=== PATIENT | female | born 1955 | race Caucasian/White ===

== ENCOUNTER 2017-09-01 09:17 | Emergency (ER) | payer MEDICAID ==
[~2017-09-01] VITALS: Ht 165.1 cm; Wt 45.8 kg
[2017-09-01 09:19] VITALS: BP 156/96
[2017-09-01] MEDS ORDERED: PROPARACAINE OPHTH 0.5%, 15ML ONE (10:01)
[2017-09-01] MEDS ORDERED: PROPARACAINE OPHTH 0.5%, 15ML EACHEYE ONE (11:30)
[2017-09-01] MEDS ORDERED: FLUORESCEIN OPHTHALMIC 1 MG STRIP EACHEYE ONE (11:30)
== END 2017-09-01 11:41 ==
LOC: ED 11:00
DX: H10.32 Unspecified acute conjunctivitis, left eye (principal); B02.33 Zoster keratitis; B30.9 Viral conjunctivitis, unspecified
CPT/HCPCS: 99283

== ENCOUNTER 2017-11-04 14:00 | Emergency (ER) | payer MEDICAID ==
[~2017-11-04] VITALS: Ht 165.1 cm; Wt 43.0 kg
[2017-11-04 14:04] VITALS: BP 138/85
[2017-11-04] MEDS ORDERED: PROPARACAINE OPHTH 0.5%, 15ML ONE (14:42)
== END 2017-11-04 15:44 | disposition home or self-care (01) ==
LOC: ED 15:10
DX: H10.402 Unspecified chronic conjunctivitis, left eye (principal); B02.9 Zoster without complications; F17.200 Nicotine dependence, unspecified, uncomplicated
CPT/HCPCS: 99283